=== PATIENT | male | born 1985 | race Caucasian/White ===

== ENCOUNTER 2025-04-06 16:02 | Emergency (ER) | payer BC ==
[~2025-04-06] VITALS: Ht 180.3 cm; Wt 81.6 kg
[2025-04-06 18:04] LABS: PLATELET COUNT (AUTO) 284 K/uL (150-450); RED BLOOD CELL COUNT(AUTO) 5.47 MIL/uL (4.5-6.0); RED CELL DISTRIBUTION WIDTH 12.9 % (11.5-15.0); WHITE BLOOD COUNT (AUTO) 5.5 K/uL (4.3-11.0)
[2025-04-06 18:25] LABS: CALCIUM, SERUM 8.9 mg/dL (8.5-10.1); CREATININE 0.9 mg/dL (0.6-1.3); SODIUM SERUM 140 mmol/L (136-145); UREA NITROGEN, BLOOD 16 mg/dL (7-18)
[2025-04-06 18:53] VITALS: BP 120/74; O2SAT 97
== END 2025-04-06 18:53 | disposition home or self-care (01) ==
LOC: ER 16:07
DX: R00.2 Palpitations (principal); R06.02 Shortness of breath; F17.200 Nicotine dependence, unspecified, uncomplicated
CPT/HCPCS: 36415; 71045-TC; 80048-TC; 84484-TC; 85025-TC